=== PATIENT | male | born 1980 | race Caucasian/White ===

== ENCOUNTER 2016-08-05 22:45 | Emergency (ER) | payer BC ==
[~2016-08-05] VITALS: Ht 170.2 cm; Wt 115.7 kg
[2016-08-05 23:30] VITALS: BP_SYST 148
--- NOTE | 2016-08-05 23:30 | NUR ---
Patient triaged and placed in waiting room. VSS and patient appears in no acute distress at this time. Accompanied by family, awaiting available bed, and MD notified of need for MSE.
--- NOTE | 2016-08-06 00:22 | NUR ---
Patient to ER bed 5 to gown for evaluation. Side rails up. Report given to PASCUAL NESS.
--- NOTE | 2016-08-06 00:30 | NUR ---
Pt presents to ED with c/o feeling tired, headache 7/10, nausea, stated he stop taking lisinopril for 3 months. A&Ox4, denies SOB or chestpain, denies dizziness, skin intact. Will continue to monitor
--- NOTE | 2016-08-06 00:33 | NUR ---
MD Rainey at bedside examining pt
[2016-08-06] MEDS ORDERED: IBUPROFEN 800 MG TABLET PO ONE (00:45)
[2016-08-06] MEDS ORDERED: LISINOPRIL 10 MG TABLET (PRINIVIL) PO ONE (00:45)
[2016-08-06 01:08] LABS: BASOPHILS # (AUTO) 0.1 K/uL (0.0-0.2); BASOPHILS % (AUTO) 1.9 % (0.0-2.0); EOSINOPHILS # (AUTO) 0.2 K/uL (0.0-0.4); EOSINOPHILS % (AUTO) 3.5 % (0.0-4.0); HEMATOCRIT 43.9 % (36-54); HEMOGLOBIN 14.1 g/dL (14.0-18.0); LYMPHOCYTES # (AUTO) 1.6 K/uL (1.0-5.5); LYMPHOCYTES % (AUTO) 24.3 % (20.5-51.5); MEAN CORPUSCULAR HEMOGLOBIN 26 pg (27-31); MEAN CORPUSCULAR HGB CONC 32 % (32-36); MEAN CORPUSCULAR VOLUME 81 fL (79.0-98.0); MONOCYTES # (AUTO) 0.4 K/uL (0.0-1.0); MONOCYTES % (AUTO) 5.8 % (1.7-9.3); NEUTROPHILS # (AUTO) 4.2 K/uL (1.8-7.7); NEUTROPHILS % (AUTO) 64.5 % (40.0-70.0); PLATELET COUNT (AUTO) 296 K/uL (130-430); RED CELL DISTRIBUTION WIDTH 13.6 % (9.0-15.0); WHITE BLOOD COUNT (AUTO) 6.5 K/uL (4.8-10.8)
--- NOTE | 2016-08-06 01:30 | NUR ---
Pt in bed, VSS. Denies distress, will continue to monitor
[2016-08-06 01:41] LABS: CALCIUM 8.5 mg/dL (8.4-11.0); CREATININE 1.35 mg/dL (0.55-1.30); POTASSIUM 3.9 mmol/L (3.5-5.1)
[2016-08-06] MEDS ORDERED: NACL 0.9% 1,000 ML IV ONE (01:45)
[2016-08-06 01:47] LABS: ALBUMIN 3.7 g/dL (3.4-4.8); TOTAL BILIRUBIN 0.2 mg/dL (0.0-1.0); TOTAL PROTEIN, SERUM 7.2 g/dL (6.4-8.3)
[2016-08-06 02:55] VITALS: BP_SYST 118
--- NOTE | 2016-08-06 02:55 | NUR ---
Patient given written and verbal discharge instructions and verbalizes understanding. ER MD Rainey discussed with patient the results and treatment provided. Patient in stable condition. ID arm band removed. IV catheter removed intact and dressing applied, no active bleeding. Rx of lisinopil given. Patient educated on pain management and to follow up with PMD. Pain Scale 0/10 Opportunity for questions provided and answered.
== END 2016-08-06 02:55 | disposition home or self-care (01) ==
LOC: SED 22:45
DX: I10 Essential (primary) hypertension (principal); N17.9 Acute kidney failure, unspecified; E86.0 Dehydration
CPT/HCPCS: 36415; 80053; 85025; 93005; 96360; 99285; J7030